=== PATIENT | female | born 1960 | race Caucasian/White ===

== ENCOUNTER 2017-09-01 15:37 | Inpatient (IN) | payer OTHER, MEDICARE ==
[2017-09-01] VITALS (8 sets, daily range): BP systolic 119–150; BP diastolic 58–107; PULSE 99–150; RESP 18–26; TEMP 97.5–98.1; O2SAT 97–99
[~2017-09-01] VITALS: Ht 157.5 cm; Wt 141.0 kg
[~2017-09-01 15:37] MED LIST: CALTTAB10 PO; CARB0.5D16 EACH EYE; EFFE75CA PO; FIORINAL2 PO; GEOD20CA PO; LAMO100 PO; LORA-474 PO; OCEASPR; OXYB5TAB PO; PERC7.5T13 PO; PROP20 PO; PROT40TA PO; RANI150 PO; STOO100C PO; SUMA6P SQ; SYNT25TA PO; TRAM50 PO; VIST50CA PO
[2017-09-01] MEDS ORDERED: SODIUM CHLORIDE 0.9% FLUSH 10 ML FLUSH IVF PRN (16:00)
[2017-09-01] MEDS ORDERED: methylPREDNISolone SOD SUCC 125 MG/2 ML VIAL IV PUSH ONE (16:00)
[2017-09-01] MEDS ORDERED: RESP: BUDESONIDE 0.5 MG/2 ML NEB NEB ONE (16:00)
[2017-09-01 16:17] LABS: BASOPHIL % 0.5 % (0.0-2.0); EOSINOPHIL # 0.3 TH/MM3 (0-0.4); EOSINOPHIL % 3.7 % (0.0-4.0); HEMATOCRIT 39.1 % (35.0-46.0); HEMO FLAGS DIFF FINAL; LYMPH % 21.2 % (9.0-44.0); LYMPHOCYTE # 1.9 TH/MM3 (1.0-4.8); MEAN CELL VOLUME 91.8 FL (80.0-100.0); MEAN CORPUSCULAR HEMOGLOBIN 30.4 PG (27.0-34.0); MEAN CORPUSCULAR HGB CONC 33.1 % (32.0-36.0); MONO % 8.9 % (0.0-8.0); NEUT % 65.7 % (16.0-70.0); PLATELET COUNT 251 TH/MM3 (150-450); RED BLOOD COUNT 4.26 MIL/MM3 (4.00-5.30); WHITE BLOOD COUNT 9.1 TH/MM3 (4.0-11.0)
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
[2017-09-01 16:33] LABS: ALKALINE PHOSPHATASE 86 U/L (45-117); ALT (GPT) 30 U/L (10-53); ANION GAP 10 MEQ/L (5-15); AST (GOT) 28 U/L (15-37); BICARBONATE 26.2 MEQ/L (21.0-32.0); BLOOD UREA NITROGEN 14 MG/DL (7-18); CHLORIDE 105 MEQ/L (98-107); GLOMERULAR FILTRATION RATE 51 ML/MIN (>89); MAGNESIUM 2.2 MG/DL (1.5-2.5); SODIUM (NA) 141 MEQ/L (136-145); TOTAL BILIRUBIN ADULT LESS THAN 0.1 MG/DL (0.2-1.0)
--- NOTE | 2017-09-01 16:35 | RADRPT ---
EXAM DATE/TIME: 09/01/2017 15:56 [facility] COMPARISON: No previous studies available for comparison. INDICATIONS : Short of breath. MEDICAL HISTORY : hx of pneumonia and bronchitis SURGICAL HISTORY : ENCOUNTER: Initial ACUITY: 1 day PAIN SCORE: 0/10 LOCATION: Bilateral chest FINDINGS: Portable AP view of the chest demonstrates a normal-sized cardiac silhouette. EKG lines overlie the p atient. Lungs are mildly underinflated but no effusion, consolidation, or pneumothorax is identified. Bones and soft tissues demonstrate no acute finding. CONCLUSION: No acute cardiopulmonary abnormality is identified. Familia Huerta MD on September 01, 2017 at 16:33 Board Certified Radiologist. This report was verified electronically.
[2017-09-01] MEDS ORDERED: BUSP15TA PO (16:36)
[2017-09-01] MEDS ORDERED: METH500T3 PO (16:36)
[2017-09-01] MEDS ORDERED: DIPH50CA PO (16:36)
[2017-09-01] MEDS ORDERED: VENTAER INH (16:36)
[2017-09-01] MEDS ORDERED: PROM25TA10 PO (16:36)
[2017-09-01] MEDS ORDERED: CYMB60CA PO (16:36)
[2017-09-01] MEDS ORDERED: SERO200T PO (16:36)
[2017-09-01] MEDS ORDERED: LAMI200T PO (16:36)
[2017-09-01] MEDS ORDERED: ARTISOL3 EACH EYE (16:36)
[2017-09-01] MEDS ORDERED: OMEP20TA93 PO (16:36)
[2017-09-01] MEDS ORDERED: PEPT262S PO (16:36)
[2017-09-01] MEDS ORDERED: LYRI100C PO (16:36)
[2017-09-01] MEDS ORDERED: [UNRECOGNIZED DRUG - CODE] PO (16:36)
[2017-09-01] MEDS ORDERED: BUPR150XL PO (16:36)
[2017-09-01] MEDS ORDERED: HYDR-3534 PO (16:36)
--- NOTE | 2017-09-01 16:42 | PD ---
Physical Exam Date Seen by Provider: Sep 01, 2017 Narrative Patient presents to us from the [place] clinic for further evaluation of shortness of breath. She gives no known history of asthma, COPD or tobacco abuse. She has no known history of CHF. Data Data Last Documented VS Vital Signs Date Time Temp Pulse Resp B/P (MAP) Pulse Ox O2 Delivery O2 Flow Rate FiO2 09/01/17 15:56 22 98 Room Air 09/01/17 15:50 98.1 102 119/58 (78) Orders Orders Complete Blood Count With Diff (09/01/17 15:51) Comprehensive Metabolic Panel (09/01/17 15:51) B-Type Natriuretic Peptide (09/01/17 15:51) D-Dimer (09/01/17 15:51) Magnesium (Mg) (09/01/17 15:51) Iv Access Insert/Monitor (09/01/17 15:51) Electrocardiogram (09/01/17 15:51) Ecg Monitoring (09/01/17 15:51) Oximetry (09/01/17 15:51) Oxygen Administration (09/01/17 15:51) Chest, Single Ap (09/01/17 15:51) Sodium Chloride 0.9% Flush (Ns Flush) (09/01/17 16:00) Methylprednisolone So Succ Inj (Solumedr (09/01/17 16:00) Budesonide Neb (Pulmicort Respule Neb) (09/01/17 16:00) Ct Pulmonary Angiogram (09/01/17 ) Labs Laboratory Tests Test 09/01/17 16:00 White Blood Count 9.1 TH/MM3 Red Blood Count 4.26 MIL/MM3 Hemoglobin 12.9 GM/DL Hematocrit 39.1 % Mean Corpuscular Volume 91.8 FL Mean Corpuscular Hemoglobin 30.4 PG Mean Corpuscular Hemoglobin Concent 33.1 % Red Cell Distribution Width 15.0 % Platelet Count 251 TH/MM3 Mean Platelet Volume 7.3 FL Neutrophils (%) (Auto) 65.7 % Lymphocytes (%) (Auto) 21.2 % Monocytes (%) (Auto) 8.9 % Eosinophils (%) (Auto) 3.7 % Basophils (%) (Auto) 0.5 % Neutrophils # (Auto) 6.0 TH/MM3 Lymphocytes # (Auto) 1.9 TH/MM3 Monocytes # (Auto) 0.8 TH/MM3 Eosinophils # (Auto) 0.3 TH/MM3 Basophils # (Auto) 0.0 TH/MM3 CBC Comment DIFF FINAL Differential Comment D-Dimer Quantitative (PE/DVT) 0.39 MG/L FEU Blood Urea Nitrogen 14 MG/DL Creatinine 1.11 MG/DL Random Glucose 109 MG/DL Total Protein 7.7 GM/DL Albumin 3.2 GM/DL Calcium Level 8.7 MG/DL Magnesium Level 2.2 MG/DL Alkaline Phosphatase 86 U/L Aspartate Amino Transf (AST/SGOT) 28 U/L Alanine Aminotransferase (ALT/SGPT) 30 U/L Total Bilirubin LESS THAN 0.1 MG/DL Sodium Level 141 MEQ/L Potassium Level 4.0 MEQ/L Chloride Level 105 MEQ/L Carbon Dioxide Level 26.2 MEQ/L Anion Gap 10 MEQ/L Estimat Glomerular Filtration Rate 51 ML/MIN MDM Supervised Visit with JUAN: Yes Narrative Course I, Dr. Meng, have reviewed the advance practice practitioner's documentation and am in agreement, met with the patient face to face, made the diagnosis, and the medical decision making was done by me. *My assessment and Findings: Vital Signs Date Time Temp Pulse Resp B/P (MAP) Pulse Ox O2 Delivery O2 Flow Rate FiO2 09/01/17 15:56 22 98 Room Air 09/01/17 15:56 98 Room Air 09/01/17 15:50 98.1 102 24 119/58 (78) 98 The patient looks dyspneic. Please see Marta Cesar NP's note for results of laboratory and radiographic evaluation, ED course, final diagnosis and disposition Jacque Meng MD Sep 01, 2017 16:42
[2017-09-01] MEDS ORDERED: IOHEXOL 350 MG/ML 10 ML VIAL (for RAD DIAG) IVCONTRAST ONE (18:05)
--- NOTE | 2017-09-01 18:36 | RADRPT ---
EXAM DATE/TIME: 09/01/2017 18:05 [facility] COMPARISON: No previous studies available for comparison. INDICATIONS : Short of breath and cough. IV CONTRAST: 75 cc Omnipaque 350 (iohexol) IV RADIATION DOSE: 33.32 CTDIvol (mGy) MEDICAL HISTORY : Hypertension. SURGICAL HISTORY : Nephrectomy, right. ENCOUNTER: Initial ACUITY: 1 day PAIN SCALE: 0/10 LOCATION: chest TECHNIQUE: Volumetric scanning of the chest was performed using a pulmonary embolism protocol MIP images were re constructed. Using automated exposure control and adjustment of the mA and/or kV according to patien t size, radiation dose was kept as low as reasonably achievable to obtain optimal diagnostic quality images. DICOM format image data is available electronically for review and comparison. Follow-up recommendations for detected pulmonary nodules are based at a minimum on nodule size and pa tient risk factors according to Fleischner Society Guidelines. FINDINGS: The combination of breathing motion artifact in conjunction with a weak opacification of the pulmonar y arteries with the contrast bolus makes this a limited study. PULMONARY ARTERIES: The central pulmonary emboli are free of filling defects. Peripheral to this there is very limited ev aluation. LUNGS: A few scattered areas of nodular ground glass opacification are seen within the upper lobes and lower lobes bilaterally. It is most pronounced within the superior segment of the right lower lobe. There is peribronchial thickening seen particularly involving the right upper lobe bronchus. This is smooth in nature. No bronchiectasis. No mass. PLEURAE: There is no pleural thickening or pleural effusion. MEDIASTINUM: There is good visualization of the great vessels of the middle mediastinum. No evidence of mediastin al or hilar adenopathy/mass. MUSCULOSKELETAL: Within normal limits for patient age. MISCELLANEOUS: The visualized upper abdominal organs demonstrate no acute abnormality. CONCLUSION: 1. Limited study due to breathing motion artifact in conjunction with a weak opacification of the pul monary arteries but the contrast bolus. No gross pulmonary emboli observed. 2. Scattered infiltrates involving both lungs with peribronchial thickening involving the right upper lobe. Infectious etiology most likely. Esa Grewal Jr., MD on September 01, 2017 at 18:31 Board Certified Radiologist. This report was verified electronically.
[2017-09-01] MEDS ORDERED: LEVOFLOXACIN 750 MG TAB PO ONE (19:00)
[2017-09-01] MEDS ORDERED: RESP: ALBUTEROL 2.5 MG/IPRATROPIUM 0.5 MG NEB (SCH) INH ONE (20:15)
[2017-09-01] MEDS ORDERED: SODIUM CHLORIDE 0.9% FLUSH 10 ML FLUSH IV FLUSH PRN (20:15)
[2017-09-01] MEDS ORDERED: RESP: ALBUTEROL 2.5 MG/IPRATROPIUM 0.5 MG NEB (PRN) NEB (20:15)
[2017-09-01] MEDS ORDERED: NALOXONE HCL 0.4 MG/ML AMP IV PUSH PRN (20:15)
[2017-09-01] MEDS: SODIUM CHLORIDE 0.9% FLUSH 10 ML FLUSH IV FLUSH SCH (21:00)
[2017-09-02] VITALS: BP 131/71; PULSE 102; RESP 20; TEMP 99.5; O2SAT 97
[2017-09-02] MEDS: lamoTRIgine 100 MG TAB PO SCH ×3 (01:05→21:56)
[2017-09-02] MEDS: PREGABALIN 100 MG CAP PO SCH ×3 (01:05→21:56)
[2017-09-02] MEDS: QUEtiapine FUMARATE 100 MG TAB PO SCH ×2 (01:05→21:56)
[2017-09-02 04:00] VITALS: BP 143/63; PULSE 103; RESP 20; TEMP 97.4; O2SAT 95
[2017-09-02 06:35] LABS: ALT (GPT) 26 U/L (10-53); ANION GAP 7 MEQ/L (5-15); AST (GOT) 23 U/L (15-37); BICARBONATE 25.2 MEQ/L (21.0-32.0); BLOOD UREA NITROGEN 14 MG/DL (7-18); CHLORIDE 108 MEQ/L (98-107); GLOMERULAR FILTRATION RATE 56 ML/MIN (>89); POTASSIUM 4.4 MEQ/L (3.5-5.1); SODIUM (NA) 140 MEQ/L (136-145)
[2017-09-02 06:36] LABS: ALKALINE PHOSPHATASE 92 U/L (45-117); TOTAL BILIRUBIN ADULT 0.1 MG/DL (0.2-1.0)
[2017-09-02 08:00] VITALS: BP 125/66; PULSE 97; RESP 16; TEMP 95.8; O2SAT 96
[2017-09-02] MEDS: SODIUM CHLORIDE 0.9% FLUSH 10 ML FLUSH IV FLUSH SCH ×2 (08:18→21:57)
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
[2017-09-02] MEDS ORDERED: ARTIFICIAL TEARS OPTH SOLN 15 ML BTL EACH EYE PRN (09:45)
[2017-09-02] MEDS ORDERED: RESP: ALBUTEROL 2.5 MG/3 ML NEB (PRN) NEB (09:45)
[2017-09-02] MEDS: buPROPion HCL 150 MG SUSTAINED RELEASE TAB PO SCH (09:45)
--- NOTE | 2017-09-02 09:56 | EKG ---
Date Performed: 09/01/2017 Time Performed: 16:15:24 PTAGE: 57 years EKG: SINUS TACHYCARDIA ABNORMAL RHYTHM ECG PREVIOUS TRACING : 01/03/2014 18.43 DOCTOR: Og Jerry Interpretating Date/Time 09/02/2017 09:54:40
[2017-09-02] MEDS: RESP: ALBUTEROL 2.5 MG/IPRATROPIUM 0.5 MG NEB (SCH) NEB ×3 (11:49→19:42)
[2017-09-02] MEDS: HEPARIN SODIUM - SQ 10,000 UNITS/ML VIAL SQ SCH ×2 (12:26→23:45)
[2017-09-02] MEDS: DULoxetine HCl DR 60 MG CAP PO SCH (12:26)
[2017-09-02] MEDS: PANTOPRAZOLE SOD 40 MG DELAYED RELEASE TAB PO SCH (12:26)
[2017-09-02 15:51] VITALS: O2SAT 96
[2017-09-02 16:00] VITALS: BP 133/75; PULSE 102; RESP 17; TEMP 98.3; O2SAT 95
[2017-09-02] MEDS ORDERED: LEVOFLOXACIN 750 MG PREMIX INJ 150 ML IV SCH (19:00)
[2017-09-02 20:09] VITALS: BP 159/81; PULSE 100; RESP 20; TEMP 97.2; O2SAT 97
[2017-09-02] MEDS ORDERED: diphenhydrAMINE HCL 50 MG CAP PO PRN (21:00)
[2017-09-03] VITALS (8 sets, daily range): BP systolic 99–157; BP diastolic 66–86; PULSE 86–122; RESP 16–20; TEMP 96.3–97.6; O2SAT 93–99
[2017-09-03] MEDS: RESP: ALBUTEROL 2.5 MG/IPRATROPIUM 0.5 MG NEB (SCH) NEB ×4 (07:59→20:24)
[2017-09-03] MEDS: DULoxetine HCl DR 60 MG CAP PO SCH (08:46)
[2017-09-03] MEDS: buPROPion HCL 150 MG SUSTAINED RELEASE TAB PO SCH (08:46)
[2017-09-03] MEDS: PANTOPRAZOLE SOD 40 MG DELAYED RELEASE TAB PO SCH (08:46)
[2017-09-03] MEDS: lamoTRIgine 100 MG TAB PO SCH ×2 (08:47→22:17)
[2017-09-03] MEDS: PREGABALIN 100 MG CAP PO SCH ×2 (08:47→22:17)
[2017-09-03] MEDS: SODIUM CHLORIDE 0.9% FLUSH 10 ML FLUSH IV FLUSH SCH ×2 (08:51→22:22)
[2017-09-03 09:25] LABS: AUTOMATED NEUTROPHIL # 5.4 TH/MM3 (1.8-7.7); BASOPHIL % 0.2 % (0.0-2.0); EOSINOPHIL # 0.2 TH/MM3 (0-0.4); EOSINOPHIL % 2.3 % (0.0-4.0); HEMATOCRIT 39.5 % (35.0-46.0); LYMPH % 25.4 % (9.0-44.0); MEAN CELL VOLUME 92.5 FL (80.0-100.0); MEAN CORPUSCULAR HEMOGLOBIN 31.3 PG (27.0-34.0); MEAN CORPUSCULAR HGB CONC 33.9 % (32.0-36.0); NEUT % 67.1 % (16.0-70.0); PLATELET COUNT 204 TH/MM3 (150-450); RED BLOOD COUNT 4.26 MIL/MM3 (4.00-5.30); RED CELL DISTRIBUTION WIDTH 15.5 % (11.6-17.2)
[2017-09-03 09:36] LABS: HEMO FLAGS AUTO DIFF
[2017-09-03 10:21] LABS: BICARBONATE 26.2 MEQ/L (21.0-32.0); POTASSIUM 5.3 MEQ/L (3.5-5.1)
[2017-09-03 10:29] LABS: BANDS 7 % (0-6); EOSINOPHILS 1 % (0-4); MYELOCYTES 1 % (0-0); NEUTROPHIL # MANUAL DIFF 6.1 TH/MM3 (1.8-7.7); POLYS (SEG NEUTROPHILS) 68 % (16-70); WBC DIFF SAMPLE 100
[2017-09-03 10:30] LABS: PLATELET ESTIMATE SMEAR NORMAL (NORMAL); PLATELET MORPHOLOGY NORMAL (NORMAL); SCAN/DIFF FINAL DIFF MANUAL
--- NOTE | 2017-09-03 10:50 | HHI.PR ---
Subjective Remarks Follow-up pneumonia. The patient states that she was feeling better overnight, but is now having wheezing and cough. She had been stable on room air, but put her oxygen back on this morning. Objective Vitals Vital Signs Date Time Temp Pulse Resp B/P (MAP) Pulse Ox O2 Delivery O2 Flow Rate FiO2 09/03/17 08:01 99 21 09/03/17 08:00 96.7 94 17 125/77 (93) 97 09/03/17 04:51 97.3 96 20 157/79 (105) 96 09/03/17 01:07 96.9 102 18 140/66 (90) 97 09/02/17 20:09 97.2 100 20 159/81 (107) 97 09/02/17 16:00 98.3 102 17 133/75 (94) 95 09/02/17 15:51 96 Nasal Cannula 2.00 I/O 09/02/17 09/02/17 09/02/17 09/03/17 09/03/17 09/03/17 07:00 15:00 23:00 07:00 15:00 23:00 Intake Total 680 ml 900 ml 580 ml Output Total 1200 ml 1600 ml Balance -520 ml 900 ml -1020 ml Intake Oral 680 ml 900 ml 580 ml Output Urine Total 1200 ml 1600 ml # Voids 3 # Bowel Movements 0 0 0 Result Diagram: 09/03/17 0819 09/03/17 0819 Imaging Last Impressions Chest X-Ray 09/01/17 1551 Signed Impressions: Service Date/Time: Friday, September 01, 2017 15:56 - CONCLUSION: No acute cardiopulmonary abnormality is identified. aFmilia Huerta MD CT Angiography 09/01/17 0000 Signed Impressions: Service Date/Time: Friday, September 01, 2017 18:05 - CONCLUSION: 1. Limited study due to breathing motion artifact in conjunction with a weak opacification of the pulmonary arteries but the contrast bolus. No gross pulmonary emboli observed. 2. Scattered infiltrates involving both lungs with peribronchial thickening involving the right upper lobe. Infectious etiology most likely. Esa Grewal Jr., MD Objective Remarks General: Obese female in no acute distress. Heart: Regular rate and rhythm. No murmur. Lungs: Scattered expiratory wheeze. Breathing is nonlabored. Abdomen: Soft, nontender, nondistended. Extremities: No lower extremity edema. Psych: Alert and oriented. Procedures None Urinary Catheter: No Vascular Central Line Catheter: No A/P Problem List: (1) Schizoaffective disorder ICD Code: F25.9 - Schizoaffective disorder, unspecified (2) Anxiety and depression ICD Code: F41.8 - Other specified anxiety disorders (3) GERD (gastroesophageal reflux disease) ICD Code: K21.9 - Gastro-esophageal reflux disease without esophagitis (4) Pneumonia ICD Code: J18.9 - Pneumonia, unspecified organism Status: Acute Assessment and Plan 1. Pneumonia: Patient presented with cough, dyspnea. Chest x-ray is clear, however chest CT shows apparent infiltrates. Continue Levaquin, oxygen, bronchodilators. Add steroids. 2. Schizoaffective disorder: Continue home medications. 3. GERD: Continue PPI. 4. DVT prophylaxis: Heparin. Discharge Planning Plan for discharge home today if oxygen is stable on room air. Problem Qualifiers (1) Pneumonia: Qualified Codes: J18.1 - Lobar pneumonia, unspecified organism Catarino Bhatt MD Sep 03, 2017 10:50
[2017-09-03] MEDS ORDERED: BENZ1CAP54 PO (10:53)
[2017-09-03] MEDS ORDERED: LEVA750T9 PO (10:53)
[2017-09-03] MEDS ORDERED: PRED5PAK PO (10:53)
[2017-09-03] MEDS ORDERED: VENTAER INH (10:53)
--- NOTE | 2017-09-03 10:53 | HHI.DCPOC ---
Discharge Care Plan Diagnosis: (1) Pneumonia (2) Schizoaffective disorder (3) GERD (gastroesophageal reflux disease) (4) Anxiety and depression Goals to Promote Your Health * To prevent worsening of your condition and complications * To maintain your health at the optimal level Directions to Meet Your Goals Take your medications as prescribed Follow your dietary instruction Follow activity as directed Keep your appointments as scheduled Take your immunizations and boosters as scheduled If your symptoms worsen call your PCP, if no PCP go to Urgent Care Center or Emergency Room Smoking is Dangerous to Your Health. Avoid second hand smoke Call the 24-hour hour crisis hotline for domestic abuse at Catarino Bhatt MD Sep 03, 2017 10:53
[2017-09-03] MEDS ORDERED: predniSONE 20 MG TAB PO ONE (11:00)
[2017-09-03] MEDS: HEPARIN SODIUM - SQ 10,000 UNITS/ML VIAL SQ SCH ×2 (11:33→22:20)
[2017-09-03] MEDS: BENZONATATE 100 MG CAP PO PRN ×2 (11:37→18:22)
[2017-09-03] MEDS: QUEtiapine FUMARATE 100 MG TAB PO SCH (22:18)
[2017-09-04 00:30] VITALS: BP 141/74; PULSE 98; RESP 18; TEMP 97.6; O2SAT 98
[2017-09-04 05:35] VITALS: BP 146/60; PULSE 87; RESP 20; TEMP 97.4; O2SAT 98
[2017-09-04] MEDS: RESP: ALBUTEROL 2.5 MG/IPRATROPIUM 0.5 MG NEB (SCH) NEB ×2 (07:30→11:11)
[2017-09-04 08:00] VITALS: BP 133/73; PULSE 91; RESP 17; TEMP 96.6; O2SAT 95
[2017-09-04] MEDS: PREGABALIN 100 MG CAP PO SCH (08:22)
[2017-09-04] MEDS: DULoxetine HCl DR 60 MG CAP PO SCH (08:22)
[2017-09-04] MEDS: SODIUM CHLORIDE 0.9% FLUSH 10 ML FLUSH IV FLUSH SCH (08:22)
[2017-09-04] MEDS: buPROPion HCL 150 MG SUSTAINED RELEASE TAB PO SCH (08:22)
[2017-09-04] MEDS: lamoTRIgine 100 MG TAB PO SCH (08:22)
[2017-09-04] MEDS: PANTOPRAZOLE SOD 40 MG DELAYED RELEASE TAB PO SCH (08:22)
[2017-09-04 10:01] LABS: BICARBONATE 28.1 MEQ/L (21.0-32.0)
[2017-09-04 10:07] LABS: POTASSIUM 3.7 MEQ/L (3.5-5.1)
--- NOTE | 2017-09-04 10:45 | HHI.DS ---
Discharge Summary Admission Date Sep 01, 2017 at 20:13 Discharge Date: Sep 04, 2017 Admitting Diagnosis PNA (1) Schizoaffective disorder ICD Code: F25.9 - Schizoaffective disorder, unspecified (2) Anxiety and depression ICD Code: F41.8 - Other specified anxiety disorders (3) GERD (gastroesophageal reflux disease) ICD Code: K21.9 - Gastro-esophageal reflux disease without esophagitis (4) Pneumonia ICD Code: J18.9 - Pneumonia, unspecified organism Status: Acute Procedures None Brief History - From Admission The patient is a 57-year-old female who presented to the emergency department with complaint of shortness of breath over the past 4-5 days. She initially presented to the [place] clinic and had a chest x-ray done. She will saw her PCP and follow-up of the chest x-ray and was sent to the ER by ambulance. She reports increasing shortness of breath over the last few days. She has been coughing, nonproductive. Chest wall is painful from the coughing. She reports fever and chills over the last few days as well. She has had nausea, but no vomiting. CBC/BMP: 09/03/17 0819 09/04/17 0845 Significant Findings Laboratory Tests Test 09/01/17 16:00 09/02/17 05:43 09/03/17 08:19 09/04/17 08:45 Monocytes (%) (Auto) 8.9 % (0.0-8.0) Creatinine 1.11 MG/DL (0.50-1.00) 1.03 MG/DL (0.50-1.00) 1.16 MG/DL (0.50-1.00) 1.14 MG/DL (0.50-1.00) Random Glucose 109 MG/DL (74-106) 138 MG/DL (74-106) Albumin 3.2 GM/DL (3.4-5.0) 2.9 GM/DL (3.4-5.0) Total Bilirubin LESS THAN 0.1 MG/DL 0.1 MG/DL (0.2-1.0) Estimat Glomerular Filtration Rate 51 ML/MIN (>89) 56 ML/MIN (>89) 49 ML/MIN (>89) 49 ML/MIN (>89) Chloride Level 108 MEQ/L (98-107) Band Neutrophils % 7 % (0-6) Myelocytes 1 % (0-0) Potassium Level 5.3 MEQ/L (3.5-5.1) Imaging Last Impressions Chest X-Ray 09/01/17 1551 Signed Impressions: Service Date/Time: Friday, September 01, 2017 15:56 - CONCLUSION: No acute cardiopulmonary abnormality is identified. Familia Huerta MD CT Angiography 09/01/17 0000 Signed Impressions: Service Date/Time: Friday, September 01, 2017 18:05 - CONCLUSION: 1. Limited study due to breathing motion artifact in conjunction with a weak opacification of the pulmonary arteries but the contrast bolus. No gross pulmonary emboli observed. 2. Scattered infiltrates involving both lungs with peribronchial thickening involving the right upper lobe. Infectious etiology most likely. Esa Grewal Jr., MD PE at Discharge General: Obese female in no acute distress. Heart: Regular rate and rhythm. No murmur. Lungs: Scattered expiratory wheeze. Breathing is nonlabored. Abdomen: Soft, nontender, nondistended. Extremities: No lower extremity edema. Psych: Alert and oriented. Pt update on day of discharge The patient states that she feels much better today. She just returned from ambulating in the [place] and states that she is less short of breath today. Wheezing has improved as well. Still coughing, but feels that the cough medicine is helping. She feels ready to go home today. Hospital Course Patient was admitted for management of pneumonia. She was started on antibiotics , bronchodilators, supplemental oxygen. Her respiratory status improved throughout the hospitalization. On the day of discharge she was stable on room air. She was felt to be stable for discharge home on oral antibiotics and steroids. Pt Condition on Discharge: Stable Discharge Disposition: Discharge Home Discharge Time: > 30 minutes Discharge Instructions DIET: Follow Instructions for: Heart Healthy Diet Activities you can perform: Regular-No Restrictions Follow up Referrals: PCP Follow-up - 1 Week New Medications: Benzonatate (Benzonatate) 100 Mg Cap 100 MG PO TID PRN for COUGH, #20 CAP 0 Refills Levofloxacin (Levaquin) 750 Mg Tablet 750 MG PO DAILY for Infection, #5 TAB 0 Refills Prednisone (21) 5 mg tab Dose Pack (Prednisone (21) 5 mg tab Dose Pack) 5 Mg Dspk 5 MG PO DIRECTED for Inflammation, #1 DSPK 0 Refills Continued Medications: Albuterol 18 GM Inh (Ventolin Hfa 18 GM Inh) 90 Mcg/Act Aer 2 PUFF INH Q6H PRN for SHORTNESS OF BREATH, #1 INHALER 0 Refills (This prescription has been renewed) Bismuth Subsalicylate Liq (Pepto-Bismol Liq) 262 Mg/15 Ml Susp 15 ML PO Q4HR PRN for INDIGESTION OR UPSET STOMACH, #1 BOTTLE 0 Refills Do not exceed 8 doses (240 mL or 16 tbsp) in 24 hours. Bupropion HCl ER 24 HR (Wellbutrin Xl 24 HR) 150 Mg Tab 150 MG PO DAILY for Control Depression, TAB 0 Refills Buspirone (Buspirone) 15 Mg Tab 30 MG PO BID for Anxiety, TAB 0 Refills Dextran 70/Hypromellose (Artificial Tears) 1 Each Droperette 1 DROP EACH EYE QID PRN for DRY EYE Diphenhydramine HCl (Diphenhydramine HCl) 50 Mg Cap 50 MG PO HS PRN for SLEEP Duloxetine DR (Cymbalta DR) 60 Mg Capdr 60 MG PO DAILY, #30 CAP 0 Refills Hydrocodone-Acetaminophen (Lortab) 7.5-325 Mg Tab 1 TAB PO Q4H PRN for PAIN, TAB 0 Refills Lamotrigine (Lamictal) 200 Mg Tab 200 MG PO BID for MOOD, #60 TAB 0 Refills Omeprazole (Omeprazole) 20 Mg Tab 40 MG PO DAILY, #30 TAB 0 Refills Pregabalin (Lyrica) 100 Mg Cap 100 MG PO BID for Pain Management, #60 CAP 0 Refills Promethazine (Phenergan) 25 Mg Tablet 25 MG PO HS for Nausea, #1 TAB 0 Refills Quetiapine (Seroquel) 200 Mg Tab 500 MG PO HS for MOOD, #30 TAB 0 Refills Vitamin E (E1000) 1,000 Unit Cap 1000 UNITS PO BID for Tardive Dyskinesia Discontinued Medications: Methocarbamol (Methocarbamol) 500 Mg Tab 750 MG PO BID PRN for MUSCLE PAIN, #120 TAB 0 Refills Stoverink,Catarino D. MD Sep 04, 2017 10:45
[2017-09-04] MEDS ORDERED: LEVA750T9 PO (11:27)
[2017-09-04] MEDS: HEPARIN SODIUM - SQ 10,000 UNITS/ML VIAL SQ SCH (12:00)
[2017-09-04] MEDS ORDERED: LEVOFLOXACIN 750 MG PREMIX INJ 150 ML IV SCH (19:00)
== END 2017-09-04 13:06 | disposition home or self-care (01) | DRG 195 ==
LOC: NEPE 15:37 → NEDA 20:13 → OBSVTOIN 20:13 → N07B 21:14
PROVIDERS: ADMIT Family Medicine; ATTEND Family Medicine
DX: J18.1 Lobar pneumonia, unspecified organism (principal); F25.9 Schizoaffective disorder, unspecified; N32.89 Other specified disorders of bladder; I10 Essential (primary) hypertension; F31.9 Bipolar disorder, unspecified; F41.8 Other specified anxiety disorders; K21.9 Gastro-esophageal reflux disease without esophagitis; Z90.5 Acquired absence of kidney; M19.90 Unspecified osteoarthritis, unspecified site; K44.9 Diaphragmatic hernia without obstruction or gangrene; G47.00 Insomnia, unspecified; E07.9 Disorder of thyroid, unspecified; R00.0 Tachycardia, unspecified; Z86.14 Personal history of Methicillin resistant Staphylococcus aureus infection
CPT/HCPCS: 71010; 71275; 80048; 80053; 83735; 83880; 85007; 85025; 85027; 85379; 93005; 94640; 94664; 96374; J1644; J1956; J2930; J7512; J7626; Q9967